=== PATIENT | male | born 1985 | race Hispanic/Latino ===

== ENCOUNTER 2018-11-27 12:17 | Observation (INO) | payer OTHER ==
[2018-11-27 12:35] VITALS: BMI 25.7
[2018-11-27] MEDS ORDERED: Sodium Chloride 0.9% 1,000 ML IV ONE (13:16)
--- NOTE | 2018-11-27 13:16 | C.PDOC ---
History Of Present Illness 33 y/o male with no sig pmx c/o 10 days of cough, fever, bodyaches, lower abdominal pain, dysuria and frequency. pt taking motrin at home, sts urine is dark and bad smelling. seen at an urgent care center last week with a neg flu te st; given a cough syrup. pt reports neg hiv testi for himself and partner Aug 2017. Time Seen by Provider: 11/27/18 12:48 Chief Complaint (Nursing): Cough, Cold, Congestion History Per: Patient History/Exam Limitations: no limitations Onset/Duration Of Symptoms: Days (10) Current Symptoms Are (Timing): Still Present Past Medical History Vital Signs: Last Vital Signs Temp 102.2 F H 11/27/18 12:43 Pulse 99 H 11/27/18 12:43 Resp 18 11/27/18 12:43 BP 136/80 11/27/18 12:43 Pulse Ox 96 11/27/18 12:43 Family History: States: Unknown Family Hx - Social History Hx Alcohol Use: Yes Hx Substance Use: No - Immunization History Hx Tetanus Toxoid Vaccination: No Hx Influenza Vaccination: Yes Hx Pneumococcal Vaccination: No Review Of Systems Constitutional: Positive for: Fever, Chills Respiratory: Positive for: Cough Gastrointestinal: Positive for: Abdominal Pain (lower ) Genitourinary: Positive for: Frequency Musculoskeletal: Positive for: Other (generalized body aches ) Physical Exam - Physical Exam Appears: Non-toxic, No Acute Distress, Other (uncomfortable ) Skin: Normal Color, Warm, Dry, No Rash Head: Atraumatic, Normacephalic Eye(s): bilateral: Normal Inspection Ear(s): Bilateral: Normal Nose: Normal, No Discharge Oral Mucosa: Dry Tongue: Other (white, pasty, dry-appearing ) Neck: Supple Chest: Symmetrical, No Deformity, No Tenderness Cardiovascular: Rhythm Regular, No Murmur Respiratory: Normal Breath Sounds, No Rales, No Rhonchi, No Wheezing, Other (persistent dry cough ) Gastrointestinal/Abdominal: Bowel Sounds (good ), Soft, Tenderness (to left and right lower quadrants and suprapubic regions ), No Guarding, No Rebound Extremity: Normal ROM, No Tenderness, No Pedal Edema, Capillary Refill (less than 2 seconds ) Neurological/Psych: Oriented x3, Normal Speech, Normal Cognition ED Course And Treatment - Laboratory Results Result Diagrams: 11/27/18 13:55 11/27/18 13:55 O2 Sat by Pulse Oximetry: 96 Pulse Ox Interpretation: Normal - Radiology CXR: Viewed By Me, Read By Radiologist (Patchy bilateral infiltrates consistent with pneumonia. ) Medical Decision Making Medical Decision Making: Progress: Bloodwork, urinalysis, CXR ordered and reviewed. Motrin PO, Sodium Chloride INH, and IV Fluids given. discussed with Dr Sandor Andres, will admit to his service. Disposition Discussed With DrChristopher: Isaac Flores Doctor Will See Patient In The: Hospital - Disposition Disposition: HOSPITALIZED Disposition Time: 14:50 Condition: GOOD - Clinical Impression Clinical Impression: Pneumonia, UTI (urinary tract infection) - PA / VICE PRESIDENT PHARMACY / Resident Statement MD/DO has reviewed & agrees with the documentation as recorded. - Scribe Statement The provider has reviewed the documentation as recorded by the Scribe (Kaylyn Flores) All medical record entries made by the Scribe were at my direction and personally dictated by me. I have reviewed the chart and agree that the record accurately reflects my personal performance of the history, physical exam, medical decision making, and the department course for this patient. I have also personally directed, reviewed, and agree with the discharge instructions and disposition.
[2018-11-27] MEDS ORDERED: Sodium Chloride 0.9% Inh Soln (3mL) UD INH ONE (13:17)
[2018-11-27 13:48] LABS: VENOUS BLOOD GAS BASE EXCESS 0.6 mmol/L (0.0-2.0); VENOUS BLOOD GAS PCO2 36 mmHg (40-60); VENOUS BLOOD GAS PO2 29 mm/Hg (30-55); VENOUS BLOOD PH 7.44 (7.32-7.43)
[2018-11-27 14:08] LABS: BASO % 0.4 % (0.0-2.0); EOS % 0.3 % (0.0-4.0); HEMOGLOBIN 14.7 g/dL (12.0-18.0); LYMPH # 1.1 K/uL (1.0-4.3); LYMPH % 14.5 % (20.0-40.0); MEAN CELL VOLUME 89.8 fL (80.0-94.0); MEAN CORPUSCULAR HEMOGLOBIN 32.2 pg (27.0-31.0); MEAN CORPUSCULAR HGB CONC 35.9 g/dL (33.0-37.0); MEAN PLATELET VOLUME 7.4 fL (7.2-11.7); MONO # 0.8 K/uL (0.0-0.8); MONO % 10.1 % (0.0-10.0); NEUT # 5.7 K/uL (1.8-7.0); NEUT % 74.7 % (50.0-75.0); NRBC % 0.1 % (0.0-2.0); RBC 4.57 Mil/uL (4.40-5.90); RED CELL DISTRIBUTION WIDTH 12.7 % (11.5-14.5); WHITE BLOOD COUNT 7.6 K/uL (4.8-10.8)
[2018-11-27 14:16] LABS: URINE BACTERIA RARE (<OCC)
[2018-11-27 14:22] LABS: ALB/GLOB RATIO 1.3 (1.0-2.1); ALT/SGPT 49 U/L (21-72); AST/SGOT 39 U/L (17-59); BLOOD UREA NITROGEN 12 mg/dL (9-20); CALCIUM 8.9 mg/dl (8.6-10.4); GFR NON-AFRICAN AMERICAN > 60
[2018-11-27 14:24] LABS: URINE BILIRUBIN MODERATE (NEGATIVE); URINE CLARITY Clear (Clear); URINE COLOR AMBER (YELLOW); URINE GLUCOSE (UA) NEGATIVE (Normal)
[2018-11-27 14:25] LABS: PH,URINE 6.5 (5.0-8.0); URINE BLOOD NEGATIVE (NEGATIVE); URINE LEUKOCYTE ESTERASE NEGATIVE Leu/uL (Negative); URINE PROTEIN TRACE mg/dL (NEGATIVE); URINE UROBILINOGEN >8.0 mg/dL (0.2-1.0)
[2018-11-27] MEDS ORDERED: cefTRIAXone IV 1 gm in Dextros 50 ML IVPB STA (14:30)
[2018-11-27] MEDS ORDERED: Azithromycin 500 MG in Sodium Chloride 0.9% 250 ML IVPB STA (14:43)
--- NOTE | 2018-11-27 15:03 | RAD ---
Date of service: 11/27/2018 HISTORY: Persistent dry cough COMPARISON: No prior. TECHNIQUE: Chest PA and lateral views FINDINGS: LUNGS: Patchy infiltrates seen in the right lower lobe and left mid and lower lung field consistent with pneumonia. PLEURA: No significant pleural effusion identified. No pneumothorax apparent. CARDIOVASCULAR: No aortic atherosclerotic calcification present. Normal cardiac size. No pulmonary vascular congestion. OSSEOUS STRUCTURES: No significant abnormalities. VISUALIZED UPPER ABDOMEN: Normal. OTHER FINDINGS: None. IMPRESSION: Patchy bilateral infiltrates consistent with pneumonia. This report was placed in PA review folder for follow up.
[2018-11-27] MEDS ORDERED: Azithromycin 500mg/250ML NS 500 MG/250 ML BAG IVPB ONE (15:06)
[2018-11-27] MEDS: Pantoprazole 40 mg EC Tab PO SCH (17:01)
[2018-11-27 17:02] VITALS: RESP 20
--- NOTE | 2018-11-27 18:50 | CP.PCM.HP ---
Present on Admission - Present on Admission Any Indicators Present on Admission: No Past Patient History - Past Social History Smoking Status: Never Smoked - PSYCHIATRIC Hx Substance Use: No - SURGICAL HISTORY Hx Surgeries: No - ANESTHESIA Hx Anesthesia: No Meds Allergies/Adverse Reactions: Allergies Allergy/AdvReac Type Severity Reaction Status Date / Time No Known Allergies Allergy Verified 11/27/18 12:33 Physical Exam - Constitutional Appears: Well - Head Exam Head Exam: ATRAUMATIC, NORMAL INSPECTION, NORMOCEPHALIC - Eye Exam Eye Exam: EOMI, Normal appearance, PERRL Pupil Exam: NORMAL ACCOMODATION, PERRL - ENT Exam ENT Exam: Mucous Membranes Moist, Normal Exam - Neck Exam Neck exam: Positive for: Normal Inspection - Respiratory Exam Respiratory Exam: Decreased Breath Sounds - Cardiovascular Exam Cardiovascular Exam: REGULAR RHYTHM, +S1, +S2 - GI/Abdominal Exam GI & Abdominal Exam: Diminished Bowel Sounds, Soft - Rectal Exam Rectal Exam: Deferred - Neurological Exam Neurological exam: Oriented x3 Results - Vital Signs Recent Vital Signs: Last Vital Signs Temp 98.6 F 11/27/18 17:01 Pulse 78 11/27/18 17:01 Resp 20 11/27/18 17:01 BP 125/78 11/27/18 17:01 Pulse Ox 95 11/27/18 17:01 - Labs Result Diagrams: 11/27/18 13:55 11/27/18 13:55 Labs: Laboratory Results - last 24 hr 11/27/18 11/27/18 11/27/18 13:40 13:55 13:55 WBC 7.6 RBC 4.57 Hgb 14.7 Hct 41.0 MCV 89.8 MCH 32.2 H MCHC 35.9 RDW 12.7 Plt Count 378 MPV 7.4 Neut % (Auto) 74.7 Lymph % (Auto) 14.5 L [place] % (Auto) 10.1 H Eos % (Auto) 0.3 Baso % (Auto) 0.4 Neut # (Auto) 5.7 Lymph # (Auto) 1.1 [place] # (Auto) 0.8 Eos # (Auto) 0.0 Baso # (Auto) 0.0 pO2 29 L VBG pH 7.44 H VBG pCO2 36 L VBG HCO3 24.3 VBG Total CO2 25.6 VBG O2 Sat (Calc) 63.8 VBG Base Excess 0.6 VBG Potassium 3.4 L Sodium 137.0 136 Chloride 102.0 100 Glucose 111 H Lactate 1.8 FiO2 21.0 Potassium 3.7 Carbon Dioxide 25 Anion Gap 15 BUN 12 Creatinine 0.9 Est GFR ( Amer) > 60 Est GFR (Non-Af Amer) > 60 Random Glucose 118 H Lactic Acid Calcium 8.9 Total Bilirubin 1.1 AST 39 ALT 49 Alkaline Phosphatase 157 H Total Protein 7.1 Albumin 4.0 Globulin 3.1 Albumin/Globulin Ratio 1.3 Venous Blood Potassium 3.4 L Urine Color Urine Clarity Urine pH Ur Specific [place] Urine Protein Urine Glucose (UA) Urine Ketones Urine Blood Urine Nitrate Urine Bilirubin Urine Urobilinogen Ur Leukocyte Esterase Urine WBC (Auto) Urine RBC (Auto) Urine Bacteria 11/27/18 11/27/18 13:55 15:21 WBC RBC Hgb Hct MCV MCH MCHC RDW Plt Count MPV Neut % (Auto) Lymph % (Auto) [place] % (Auto) Eos % (Auto) Baso % (Auto) Neut # (Auto) Lymph # (Auto) [place] # (Auto) Eos # (Auto) Baso # (Auto) pO2 VBG pH VBG pCO2 VBG HCO3 VBG Total CO2 VBG O2 Sat (Calc) VBG Base Excess VBG Potassium Sodium Chloride Glucose Lactate FiO2 Potassium Carbon Dioxide Anion Gap BUN Creatinine Est GFR ( Amer) Est GFR (Non-Af Amer) Random Glucose Lactic Acid 0.8 Calcium Total Bilirubin AST ALT Alkaline Phosphatase Total Protein Albumin Globulin Albumin/Globulin Ratio Venous Blood Potassium Urine Color [place] Urine Clarity Clear Urine pH 6.5 Ur Specific [place] 1.020 Urine Protein Trace Urine Glucose (UA) Negative Urine Ketones Negative Urine Blood Negative Urine Nitrate Positive H Urine Bilirubin Moderate Urine Urobilinogen >8.0 Ur Leukocyte Esterase Negative Urine WBC (Auto) 2 Urine RBC (Auto) < 1 Urine Bacteria Rare Assessment & Plan - Assessment and Plan (Free Text) Plan: Rocephin 1 g Mucinex DM Pantoprazole IV Zithromax Acetaminophen Pulmonary consult Regular diet Septic workup Laboratory seen WBC is normal 7.6 Blood gas PP0 229 PCO2 36 Potassium 3.7 Alkaline phosphate is 157 Urine nitrates positive with no symptoms workup for abnormal labs as an outpatient
[2018-11-27] MEDS ORDERED: Promethazine/Cod 6.25mg-10mg/5ml Syr UD PO SCH (21:00)
[2018-11-28] MEDS: guaiFENesin-Codeine 100-10mg/5ml Syrup (10ml) UD PO SCH ×3 (07:30→21:47)
[2018-11-28] MEDS: Pantoprazole 40 mg EC Tab PO SCH (09:33)
--- NOTE | 2018-11-28 09:46 | CP.PCM.CON ---
History of Present Illness - History of Present Illness History of Present Illness: CHART REVIEWED. PT SEEN AND EXAMINED. 33 YO W MALE WITH NO SIG PMH ADM WITH INCREASED MOD COUGH X 10 DAYS NO SPUTUM., WORSE DAYTIME., SEEN IN URGICENTER GIVEN COUGH SYRUP. NO FEVER, NO CHILLS. DECREASED APPETITE, NO N/V NO DIARRHEA. NO HX SINUSITIS, NO HX GERD, NO HX ASTHMA. NO PREVIOUS ADM. NO SICK CONTACTS. Review of Systems - Review of Systems All systems: reviewed and no additional remarkable complaints except - Constitutional Constitutional: Weakness. absent: Chills, Fever, Headache - EENT Eyes: absent: Change in Vision Nose/Mouth/Throat: absent: Nasal Congestion - Cardiovascular Cardiovascular: absent: Chest Pain - Respiratory Respiratory: Cough. absent: Hemoptysis, Excessive Mucous Production - Gastrointestinal Gastrointestinal: absent: Diarrhea, Nausea, Vomiting - Genitourinary Genitourinary: Dysuria - Musculoskeletal Musculoskeletal: absent: Limited Range of Motion - Integumentary Integumentary: absent: Rash Additional comments: MULT TATTOOS - Neurological Neurological: absent: Confusion, Focal Weakness - Psychiatric Psychiatric: absent: Anxiety - Endocrine Endocrine: absent: Change in Body Appearance - Hematologic/Lymphatic Hematologic: absent: Lymphadenopathy Past Patient History - Past Medical History & Family History Past Medical History?: No Past Family History: Reviewed and not pertinent - Past Social History Smoking Status: Never Smoked Chewing Tobacco Use: No Cigar Use: No Alcohol: None Drugs: Denies - CARDIAC Hx Cardiac Disorders: No - PULMONARY Hx Respiratory Disorders: No - NEUROLOGICAL Hx Neurological Disorder: No - HEENT Hx HEENT Problems: No - RENAL Hx Chronic Kidney Disease: No - ENDOCRINE/METABOLIC Hx Endocrine Disorders: No - HEMATOLOGICAL/ONCOLOGICAL Hx Blood Disorders: No - INTEGUMENTARY Hx Dermatological Problems: No - MUSCULOSKELETAL/RHEUMATOLOGICAL Hx Musculoskeletal Disorders: No - GASTROINTESTINAL Hx Gastrointestinal Disorders: No - GENITOURINARY/GYNECOLOGICAL Hx Genitourinary Disorders: No - PSYCHIATRIC Hx Psychophysiologic Disorder: No Hx Substance Use: No - SURGICAL HISTORY Hx Surgeries: No - ANESTHESIA Hx Anesthesia: No Meds Allergies/Adverse Reactions: Allergies Allergy/AdvReac Type Severity Reaction Status Date / Time No Known Allergies Allergy Verified 11/27/18 12:33 - Medications Medications: Current Medications Acetaminophen (Tylenol 325mg Tab) 650 mg PO Q6 PRN PRN Reason: Pain, moderate (4-7) Last Admin: 11/27/18 22:36 Dose: 650 mg Guaifenesin/Codeine Phosphate (Guaifenesin/Codeine) 10 ml PO Q8H FORREST Last Admin: 11/28/18 07:30 Dose: 10 ml Azithromycin (Zithromax 500mg In Ns Addvantage) 500 mg in 250 mls @ 167 mls/hr IVPB Q24H FORREST; Protocol Ceftriaxone Sodium 1 gm/ (Sodium Chloride) 100 mls @ 100 mls/hr IVPB DAILY FORREST; Protocol Last Admin: 11/28/18 09:33 Dose: 100 mls/hr Pantoprazole Sodium (Protonix Ec Tab) 40 mg PO DAILY FORREST Last Admin: 11/28/18 09:33 Dose: 40 mg Pneumococcal Polyvalent Vaccine (Pneumovax 23 Vaccine) 0.5 ml IM .ONCE ONE Stop: 11/29/18 10:01 Physical Exam - Constitutional Appears: No Acute Distress - Head Exam Head Exam: ATRAUMATIC, NORMOCEPHALIC - Eye Exam Eye Exam: EOMI, Normal appearance - ENT Exam ENT Exam: Mucous Membranes Moist - Neck Exam Neck exam: Positive for: Normal Inspection - Respiratory Exam Respiratory Exam: absent: Chest Wall Tenderness, Wheezes, Respiratory Distress - Cardiovascular Exam Cardiovascular Exam: RRR, +S1, +S2 - GI/Abdominal Exam GI & Abdominal Exam: Soft. absent: Tenderness - Rectal Exam Rectal Exam: Deferred - Extremities Exam Extremities exam: Negative for: calf tenderness, pedal edema - Back Exam Back exam: absent: CVA tenderness (L), CVA tenderness (R) - Neurological Exam Neurological exam: Alert, CN II-XII Intact, Oriented x3 - Psychiatric Exam Psychiatric exam: Normal Mood Results - Vital Signs Recent Vital Signs: Last Vital Signs Temp 98.9 F 11/28/18 08:17 Pulse 77 11/28/18 08:17 Resp 20 11/28/18 08:17 BP 115/72 11/28/18 08:17 Pulse Ox 95 11/28/18 08:17 - Labs Result Diagrams: 11/27/18 13:55 11/27/18 13:55 Labs: Laboratory Results - last 24 hr 11/27/18 11/27/18 11/27/18 13:40 13:55 13:55 WBC 7.6 RBC 4.57 Hgb 14.7 Hct 41.0 MCV 89.8 MCH 32.2 H MCHC 35.9 RDW 12.7 Plt Count 378 MPV 7.4 Neut % (Auto) 74.7 Lymph % (Auto) 14.5 L [place] % (Auto) 10.1 H Eos % (Auto) 0.3 Baso % (Auto) 0.4 Neut # (Auto) 5.7 Lymph # (Auto) 1.1 [place] # (Auto) 0.8 Eos # (Auto) 0.0 Baso # (Auto) 0.0 pO2 29 L VBG pH 7.44 H VBG pCO2 36 L VBG HCO3 24.3 VBG Total CO2 25.6 VBG O2 Sat (Calc) 63.8 VBG Base Excess 0.6 VBG Potassium 3.4 L Sodium 137.0 136 Chloride 102.0 100 Glucose 111 H Lactate 1.8 FiO2 21.0 Potassium 3.7 Carbon Dioxide 25 Anion Gap 15 BUN 12 Creatinine 0.9 Est GFR ( Amer) > 60 Est GFR (Non-Af Amer) > 60 Random Glucose 118 H Lactic Acid Calcium 8.9 Total Bilirubin 1.1 AST 39 ALT 49 Alkaline Phosphatase 157 H Total Protein 7.1 Albumin 4.0 Globulin 3.1 Albumin/Globulin Ratio 1.3 Venous Blood Potassium 3.4 L Urine Color Urine Clarity Urine pH Ur Specific [place] Urine Protein Urine Glucose (UA) Urine Ketones Urine Blood Urine Nitrate Urine Bilirubin Urine Urobilinogen Ur Leukocyte Esterase Urine WBC (Auto) Urine RBC (Auto) Urine Bacteria 11/27/18 11/27/18 13:55 15:21 WBC RBC Hgb Hct MCV MCH MCHC RDW Plt Count MPV Neut % (Auto) Lymph % (Auto) [place] % (Auto) Eos % (Auto) Baso % (Auto) Neut # (Auto) Lymph # (Auto) [place] # (Auto) Eos # (Auto) Baso # (Auto) pO2 VBG pH VBG pCO2 VBG HCO3 VBG Total CO2 VBG O2 Sat (Calc) VBG Base Excess VBG Potassium Sodium Chloride Glucose Lactate FiO2 Potassium Carbon Dioxide Anion Gap BUN Creatinine Est GFR ( Amer) Est GFR (Non-Af Amer) Random Glucose Lactic Acid 0.8 Calcium Total Bilirubin AST ALT Alkaline Phosphatase Total Protein Albumin Globulin Albumin/Globulin Ratio Venous Blood Potassium Urine Color [place] Urine Clarity Clear Urine pH 6.5 Ur Specific [place] 1.020 Urine Protein Trace Urine Glucose (UA) Negative Urine Ketones Negative Urine Blood Negative Urine Nitrate Positive H Urine Bilirubin Moderate Urine Urobilinogen >8.0 Ur Leukocyte Esterase Negative Urine WBC (Auto) 2 Urine RBC (Auto) < 1 Urine Bacteria Rare Assessment & Plan (1) Pneumonia Status: Acute (2) UTI (urinary tract infection) Status: Acute - Assessment and Plan (Free Text) Assessment: 33 YO MALE ADM WITH COUGH +BILAT PNA ON CXR., CXR REVIEWED. CONT EMPIRIC AB . ATYPICAL TITERS, R/O FLU. +UTI NOTED, CHECK HIV STATUS. DVT PROPHYLAXIS. DISCUSSED WITH STAFF AT LENGTH.
[2018-11-28] MEDS: Azithromycin 500mg/250ML NS 500 MG/250 ML BAG IVPB SCH (10:56)
--- NOTE | 2018-11-28 18:15 | CP.PCM.PN ---
Subjective - Subjective Subjective: patient seen and examined today no nausea no vomiting no fever no dizziness no shortness of breath no diarrhea Objective - Vital Signs/Intake and Output Vital Signs (last 24 hours): Temp Pulse Resp BP Pulse Ox 99 F 66 20 113/66 96 11/28/18 16:29 11/28/18 16:29 11/28/18 16:29 11/28/18 16:29 11/28/18 16:29 Intake and Output: 11/28/18 11/28/18 06:59 18:59 Intake Total 350 390 Balance 350 390 - Medications Medications: Current Medications Acetaminophen (Tylenol 325mg Tab) 650 mg PO Q6 PRN PRN Reason: Pain, moderate (4-7) Last Admin: 11/27/18 22:36 Dose: 650 mg Guaifenesin/Codeine Phosphate (Guaifenesin/Codeine) 10 ml PO Q8H FORREST Last Admin: 11/28/18 13:25 Dose: 10 ml Azithromycin (Zithromax 500mg In Ns Addvantage) 500 mg in 250 mls @ 167 mls/hr IVPB Q24H FORREST; Protocol Last Admin: 11/28/18 10:56 Dose: 167 mls/hr Ceftriaxone Sodium 1 gm/ (Sodium Chloride) 100 mls @ 100 mls/hr IVPB DAILY FORREST; Protocol Last Admin: 11/28/18 09:33 Dose: 100 mls/hr Pantoprazole Sodium (Protonix Ec Tab) 40 mg PO DAILY FORREST Last Admin: 11/28/18 09:33 Dose: 40 mg Pneumococcal Polyvalent Vaccine (Pneumovax 23 Vaccine) 0.5 ml IM .ONCE ONE Stop: 11/29/18 10:01 - Labs Labs: 11/27/18 13:55 11/27/18 13:55 - Constitutional Appears: Well - Head Exam Head Exam: ATRAUMATIC, NORMAL INSPECTION, NORMOCEPHALIC - Eye Exam Eye Exam: EOMI, Normal appearance, PERRL Pupil Exam: NORMAL ACCOMODATION, PERRL - ENT Exam ENT Exam: Mucous Membranes Moist, Normal Exam - Neck Exam Neck Exam: Full ROM, Normal Inspection. absent: Lymphadenopathy - Respiratory Exam Respiratory Exam: Decreased Breath Sounds - Cardiovascular Exam Cardiovascular Exam: REGULAR RHYTHM, +S1, +S2 - GI/Abdominal Exam GI & Abdominal Exam: Soft, Diminished Bowel Sounds - Rectal Exam Rectal Exam: Deferred - Neurological Exam Neurological Exam: Oriented x3 Assessment and Plan - Assessment and Plan (Free Text) Plan: ceftriaxone sodium guaifenesin/codeine protnox ec tab tylenol zithromax 500mg medications reivewed labs reviewed vitals reviewed
[2018-11-29] MEDS: guaiFENesin-Codeine 100-10mg/5ml Syrup (10ml) UD PO SCH ×2 (05:43→13:53)
[2018-11-29] MEDS: Pantoprazole 40 mg EC Tab PO SCH (09:35)
[2018-11-29] MEDS: Azithromycin 500mg/250ML NS 500 MG/250 ML BAG IVPB SCH (09:36)
[2018-11-29] MEDS ORDERED: Pneumococcal 23-Valent Vaccine IM ONE (10:00)
[2018-11-29 15:40] VITALS: BP 123/78; PULSE 72; TEMP 97.6; O2SAT 94
--- NOTE | 2018-11-29 16:30 | CP.PCM.CON ---
History of Present Illness - History of Present Illness History of Present Illness: 33 y/o male with no sig pmx c/o 10 days of cough, fever, bodyaches, Had neg flu test last week Neg HIV test in Aug n/c NKA SH no IVDA Review of Systems - Review of Systems All systems: reviewed and no additional remarkable complaints except - Constitutional Constitutional: As Per HPI - EENT Eyes: absent: As Per HPI, Blind Spots, Blurred Vision, Change in Vision, Decreased Night Vision, Diplopia, Discharge, Dry Eye, Exophthalmos, Floaters, Irritation, Itchy Eyes, Loss of Peripheral Vision, Pain, Photophobia, Requires Corrective Lenses, Sees Flashes, Spots in Vision, Tunnel Vision, Other Visual Disturbances, Loss of Vision, Other Ears: absent: As Per HPI, Decreased Hearing, Ear Discharge, Ear Pain, Tinnitus, Abnormal Hearing, Disequilibrium, Dizziness, Other Nose/Mouth/Throat: absent: As Per HPI, Epistaxis, Nasal Congestion, Nasal Discharge, Nasal Obstruction, Nasal Trauma, Nose Pain, Post Nasal Drip, Sinus Pain, Sinus Pressure, Bleeding Gums, Change in Voice, Dental Pain, Dry Mouth, Dysphagia, Halitosis, Hoarsness, Lip Swelling, Mouth Lesions, Mouth Pain, Odynophagia, Sore Throat, Throat Swelling, Tongue Swelling, Facial Pain, Neck Pain, Neck Mass, Other - Cardiovascular Cardiovascular: absent: As Per HPI, Acrocyanosis, Chest Pain, Chest Pain at Rest, Chest Pain with Activity, Claudication, Diaphoresis, Dyspnea, Dyspnea on Exertion, Edema, Irregular Heart Rhythm, Pain Radiating to Arm/Neck/Jaw, Leg Edema, Leg Ulcers, Lightheadedness, Orthopnea, Palpitations, Paroxysmal No cturnal Dyspnea, Pedal Edema, Radiating Pain, Rapid Heart Rate, Slow Heart Rate, Syncope, Other - Respiratory Respiratory: As Per HPI - Gastrointestinal Gastrointestinal: absent: As Per HPI, Abdominal Pain, Belching, Bloating, Change in Bowel Habits, Change in Stool Character, Coffee Ground Emesis, Constipation, Cramping, Diarrhea, Dyspepsia, Dysphagia, Early Satiety, Excessive Flatus, Fecal Incontinence, Heartburn, Hematemesis, Hematochezia, Loose Stools, Melena, Nausea, Odynophagia, Temesmus, Vomiting, Other - Genitourinary Genitourinary: absent: As Per HPI, Change in Urinary Stream, Difficulty Urinating, Dysuria, Flank Pain, Hematuria, Pyuria, Nocturia, Urinary Incontinen ce, Urinary Frequency, Urinary Hesitance, Urinary Urgency, Voiding Freq/Small Amts, Freq UTI, Hx Renal/Bladder Calculi, Hx /Renal Surgery, Bladder Distension, Other - Musculoskeletal Musculoskeletal: absent: As Per HPI, Abnormal Gait, Arthralgias, Atrophy, Back Pain, Deformity, Joint Swelling, Limited Range of Motion, Loss of Height, Muscle Cramps, Muscle Weakness, Myalgias, Neck Pain, Numbness, Radiating Pain into Limb, Stiffness, Tingling, Other - Integumentary Integumentary: absent: As Per HPI, Acne, Alopecia, Bleeding Lesions, Change in Hair, Change in Nails, Change in Pigmentation, Changing Lesions, Dry Skin, Erythema, Furuncle, Hirsutism, Lesions, New Lesions, Non-Healing Lesions, Photosensitivity, Pruritus, Rash, Skin Pain, Skin Ulcer, Sores, Striae, Swelling, Unusual Bruising, Wounds, Jaundice, Other - Neurological Neurological: absent: As Per HPI, Abnormal Gait, Abnormal Hearing, Abnormal Movements, Abnormal Speech, Behavioral Changes, Burning Sensations, Confusion, Convulsions, Disequilibrium, Dizziness, Numbness, Focal Weakness, Frequent Falls, Headaches, Lack of Coordination, Loss of Vision, Memory Loss, Paresthesias, Radicular Pain, Restless Legs, Sensory Deficit, Syncope, Tingling, Tremor, Vertigo, Weakness, Other Visual Disturbances, Other - Psychiatric Psychiatric: absent: As Per HPI, Abnormal Sleep Pattern, Anhedonia, Anxiety, Auditory Hallucinations, Behavioral Changes, Change in Appetite, Change in L ibido, Confusion, Depression, Difficulty Concentrating, Hallucinations, Homicidal Ideation, Hopelessness, Irritability, Memory Loss, Mood Swings, Panic Attacks, Paranoia, Suicidal Ideation, Visual Hallucinations, Tactile Hallucinations, Other - Endocrine Endocrine: absent: As Per HPI, Change in Body Appearance, Change in Libido, Cold Intolorance, Deepening of Voice, Excessive Sweating, Fatigue, Flushing, Heat Intolorance, Increase in Ring/Shoe/Hat Size, Palpitations, Polydipsia, Polyphagia, Polyuria, Other - Hematologic/Lymphatic Hematologic: absent: As Per HPI, Easy Bleeding, Easy Bruising, Lymphadenopathy, Other Past Patient History - Past Medical History & Family History Past Medical History?: No Past Family History: Reviewed and not pertinent - Past Social History Smoking Status: Never Smoked Chewing Tobacco Use: No Cigar Use: No Alcohol: None Drugs: Denies - CARDIAC Hx Cardiac Disorders: No - PULMONARY Hx Respiratory Disorders: No - NEUROLOGICAL Hx Neurological Disorder: No - HEENT Hx HEENT Problems: No - RENAL Hx Chronic Kidney Disease: No - ENDOCRINE/METABOLIC Hx Endocrine Disorders: No - HEMATOLOGICAL/ONCOLOGICAL Hx Blood Disorders: No - INTEGUMENTARY Hx Dermatological Problems: No - MUSCULOSKELETAL/RHEUMATOLOGICAL Hx Musculoskeletal Disorders: No - GASTROINTESTINAL Hx Gastrointestinal Disorders: No - GENITOURINARY/GYNECOLOGICAL Hx Genitourinary Disorders: No - PSYCHIATRIC Hx Psychophysiologic Disorder: No Hx Substance Use: No - SURGICAL HISTORY Hx Surgeries: No - ANESTHESIA Hx Anesthesia: No Meds Home Medications: Home Medication List Medication Instructions Recorded Confirmed Type Amoxicillin/Clavulanate [Augmentin 1 tab PO BID #20 tab 11/29/18 Rx 875 MG-125 MG] Saccharomyces Boulardii [Florastor 1 cap PO BID #20 cap 11/29/18 Rx 33 mg-250 mg] Allergies/Adverse Reactions: Allergies Allergy/AdvReac Type Severity Reaction Status Date / Time No Known Allergies Allergy Verified 11/27/18 12:33 - Medications Medications: Current Medications Acetaminophen (Tylenol 325mg Tab) 650 mg PO Q6 PRN PRN Reason: Pain, moderate (4-7) Last Admin: 11/28/18 18:33 Dose: 650 mg Guaifenesin/Codeine Phosphate (Guaifenesin/Codeine) 10 ml PO Q8H FORREST Last Admin: 11/29/18 13:53 Dose: 10 ml Azithromycin (Zithromax 500mg In Ns Addvantage) 500 mg in 250 mls @ 167 mls/hr IVPB Q24H FORREST; Protocol Last Admin: 11/29/18 09:36 Dose: 167 mls/hr Ceftriaxone Sodium 1 gm/ (Sodium Chloride) 100 mls @ 100 mls/hr IVPB DAILY FORREST; Protocol Last Admin: 11/29/18 09:35 Dose: 100 mls/hr Pantoprazole Sodium (Protonix Ec Tab) 40 mg PO DAILY FORREST Last Admin: 11/29/18 09:35 Dose: 40 mg Physical Exam - Constitutional Appears: Non-toxic, No Acute Distress, Chronically Ill - Head Exam Head Exam: ATRAUMATIC, NORMAL INSPECTION, NORMOCEPHALIC - Eye Exam Eye Exam: EOMI, Normal appearance, PERRL Pupil Exam: NORMAL ACCOMODATION, PERRL - ENT Exam ENT Exam: Mucous Membranes Moist, Normal Exam - Neck Exam Neck exam: Positive for: Normal Inspection - Respiratory Exam Respiratory Exam: Clear to Auscultation Bilateral, NORMAL BREATHING PATTERN - Cardiovascular Exam Cardiovascular Exam: REGULAR RHYTHM, +S1, +S2 - GI/Abdominal Exam GI & Abdominal Exam: Normal Bowel Sounds, Soft. absent: Tenderness - Rectal Exam Rectal Exam: Deferred - Exam Exam: NORMAL INSPECTION - Extremities Exam Extremities exam: Positive for: normal inspection - Back Exam Back exam: NORMAL INSPECTION - Neurological Exam Neurological exam: Alert, CN II-XII Intact, Normal Gait, Oriented x3, Reflexes Normal - Psychiatric Exam Psychiatric exam: Normal Affect, Normal Mood - Skin Skin Exam: Dry, Intact, Normal Color, Warm Results - Vital Signs Recent Vital Signs: Last Vital Signs Temp 97.6 F 11/29/18 15:00 Pulse 72 11/29/18 15:00 Resp 20 11/29/18 15:00 BP 123/78 11/29/18 15:00 Pulse Ox 94 L 11/29/18 15:00 - Labs Result Diagrams: 11/27/18 13:55 11/27/18 13:55 Labs: Laboratory Results - last 24 hr 11/29/18 07:29 HIV 1&2 Antibody Screen Negative Assessment & Plan (1) Pneumonia Status: Acute - Assessment and Plan (Free Text) Assessment: cont iv rx await cultures and serologies will follow with you
--- NOTE | 2018-11-29 16:51 | CP.PCM.PN ---
Subjective - Date & Time of Evaluation Date of Evaluation: 11/29/18 Time of Evaluation: 16:49 - Subjective Subjective: PT ALERT, OOB, FEELS BETTER., NO SOB. ROS' ; OTHERWISE NEG Objective - Vital Signs/Intake and Output Vital Signs (last 24 hours): Temp Pulse Resp BP Pulse Ox 97.6 F 72 20 123/78 94 L 11/29/18 15:00 11/29/18 15:00 11/29/18 15:00 11/29/18 15:00 11/29/18 15:00 Intake and Output: 11/29/18 11/29/18 06:59 18:59 Intake Total 350 850 Output Total 2 Balance 350 848 - Medications Medications: Current Medications Acetaminophen (Tylenol 325mg Tab) 650 mg PO Q6 PRN PRN Reason: Pain, moderate (4-7) Last Admin: 11/28/18 18:33 Dose: 650 mg Guaifenesin/Codeine Phosphate (Guaifenesin/Codeine) 10 ml PO Q8H FORREST Last Admin: 11/29/18 13:53 Dose: 10 ml Azithromycin (Zithromax 500mg In Ns Addvantage) 500 mg in 250 mls @ 167 mls/hr IVPB Q24H FORREST; Protocol Last Admin: 11/29/18 09:36 Dose: 167 mls/hr Ceftriaxone Sodium 1 gm/ (Sodium Chloride) 100 mls @ 100 mls/hr IVPB DAILY FORREST; Protocol Last Admin: 11/29/18 09:35 Dose: 100 mls/hr Pantoprazole Sodium (Protonix Ec Tab) 40 mg PO DAILY FORREST Last Admin: 11/29/18 09:35 Dose: 40 mg - Labs Labs: 11/27/18 13:55 11/27/18 13:55 - Constitutional Appears: No Acute Distress - Head Exam Head Exam: ATRAUMATIC, NORMOCEPHALIC - Eye Exam Eye Exam: EOMI, Normal appearance - ENT Exam ENT Exam: Mucous Membranes Moist - Neck Exam Neck Exam: Normal Inspection - Respiratory Exam Respiratory Exam: absent: Rhonchi, Wheezes, Respiratory Distress - Cardiovascular Exam Cardiovascular Exam: RRR, +S1, +S2 - GI/Abdominal Exam GI & Abdominal Exam: Soft. absent: Tenderness - Rectal Exam Rectal Exam: Deferred - Extremities Exam Extremities Exam: absent: Calf Tenderness, Pedal Edema - Back Exam Back Exam: absent: CVA tenderness (L), CVA tenderness (R) - Neurological Exam Neurological Exam: Alert, Awake, CN II-XII Intact, Normal Gait, Oriented x3 - Psychiatric Exam Psychiatric exam: Normal Mood - Skin Skin Exam: absent: Rash Assessment and Plan (1) Pneumonia Status: Acute (2) UTI (urinary tract infection) Status: Acute - Assessment and Plan (Free Text) Assessment: RESP STATUS IMPROVING., ADEQ OXYGENATION., CXR REVIEWED. AFEBRILE ON EMPIRIC AB. TO F/U CXR FOR CLEARANCE. ID EVAL NOTED. DISCUSSED WITH STAFF AT LENGTH.
--- NOTE | 2018-11-29 18:28 | CP.PCM.PN ---
Subjective - Date & Time of Evaluation Date of Evaluation: 11/29/18 Time of Evaluation: 11:00 - Subjective Subjective: alert, oriented, no sob or chest pains. Objective - Vital Signs/Intake and Output Vital Signs (last 24 hours): Temp Pulse Resp BP Pulse Ox 97.6 F 72 20 123/78 94 L 11/29/18 15:00 11/29/18 15:00 11/29/18 15:00 11/29/18 15:00 11/29/18 15:00 Intake and Output: 11/29/18 11/29/18 06:59 18:59 Intake Total 350 850 Output Total 2 Balance 350 848 - Labs Labs: 11/27/18 13:55 11/27/18 13:55 Assessment and Plan - Assessment and Plan (Free Text) Assessment: Patient is seen and examined with DR Sudhir Flores. Alert and orientedx3, requesting to go home, feeling better. Denies sob or chest pains. Plan to discharge home on orl antibiotics x 10 days. Advised to follow up in the office in 1 week.
--- NOTE | 2018-11-29 22:54 | CP.PCM.DIS ---
Provider - Provider Date of Admission: 11/27/18 14:48 Attending physician: Ernesto Floers MD Consults: 11/27/18 21:14 Pulmonology Consult Routine Comment: Consulting Provider: Mary Ballard Consulting Physician: Mary Ballard Reason for Consult: pnemonia, coughing 11/28/18 16:21 Physician Consult Routine Comment: Consulting Provider: Eduard Cardenas Consulting Physician: Eduard Cardenas Reason for Consult: pneumonia Time Spent in preparation of Discharge (in minutes): 15 Hospital Course - Lab Results Lab Results: Micro Results 11/27/18 13:55 Blood Blood Culture - Preliminary NO GROWTH AFTER 48 HOURS 11/27/18 13:55 Blood Blood Culture - Preliminary NO GROWTH AFTER 48 HOURS 11/27/18 13:55 Urine,Clean Catch Urine Culture - Final No Growth (<1,000 CFU/ML) Most Recent Lab Values WBC 7.6 K/uL (4.8-10.8) 11/27/18 13:55 RBC 4.57 Mil/uL (4.40-5.90) 11/27/18 13:55 Hgb 14.7 g/dL (12.0-18.0) 11/27/18 13:55 Hct 41.0 % (35.0-51.0) 11/27/18 13:55 MCV 89.8 fL (80.0-94.0) 11/27/18 13:55 MCH 32.2 pg (27.0-31.0) H 11/27/18 13:55 MCHC 35.9 g/dL (33.0-37.0) 11/27/18 13:55 RDW 12.7 % (11.5-14.5) 11/27/18 13:55 Plt Count 378 K/uL (130-400) 11/27/18 13:55 MPV 7.4 fL (7.2-11.7) 11/27/18 13:55 Neut % (Auto) 74.7 % (50.0-75.0) 11/27/18 13:55 Lymph % (Auto) 14.5 % (20.0-40.0) L 11/27/18 13:55 [place] % (Auto) 10.1 % (0.0-10.0) H 11/27/18 13:55 Eos % (Auto) 0.3 % (0.0-4.0) 11/27/18 13:55 Baso % (Auto) 0.4 % (0.0-2.0) 11/27/18 13:55 Neut # (Auto) 5.7 K/uL (1.8-7.0) 11/27/18 13:55 Lymph # (Auto) 1.1 K/uL (1.0-4.3) 11/27/18 13:55 [place] # (Auto) 0.8 K/uL (0.0-0.8) 11/27/18 13:55 Eos # (Auto) 0.0 K/uL (0.0-0.7) 11/27/18 13:55 Baso # (Auto) 0.0 K/uL (0.0-0.2) 11/27/18 13:55 pO2 29 mm/Hg (30-55) L 11/27/18 13:40 VBG pH 7.44 (7.32-7.43) H 11/27/18 13:40 VBG pCO2 36 mmHg (40-60) L 11/27/18 13:40 VBG HCO3 24.3 mmol/L 11/27/18 13:40 VBG Total CO2 25.6 mmol/L (22-28) 11/27/18 13:40 VBG O2 Sat (Calc) 63.8 % (40-65) 11/27/18 13:40 VBG Base Excess 0.6 mmol/L (0.0-2.0) 11/27/18 13:40 VBG Potassium 3.4 mmol/L (3.6-5.2) L 11/27/18 13:40 Sodium 137.0 mmol/l (132-148) 11/27/18 13:40 Chloride 102.0 mmol/L (98-107) 11/27/18 13:40 Glucose 111 mg/dl (75-110) H 11/27/18 13:40 Lactate 1.8 mmol/L (0.7-2.1) 11/27/18 13:40 FiO2 21.0 % 11/27/18 13:40 Sodium 136 mmol/L (132-148) 11/27/18 13:55 Potassium 3.7 mmol/L (3.6-5.2) 11/27/18 13:55 Chloride 100 mmol/L (98-107) 11/27/18 13:55 Carbon Dioxide 25 mmol/L (22-30) 11/27/18 13:55 Anion Gap 15 (10-20) 11/27/18 13:55 BUN 12 mg/dL (9-20) 11/27/18 13:55 Creatinine 0.9 mg/dL (0.8-1.5) 11/27/18 13:55 Est GFR ( Amer) > 60 11/27/18 13:55 Est GFR (Non-Af Amer) > 60 11/27/18 13:55 Random Glucose 118 mg/dL (75-110) H 11/27/18 13:55 Lactic Acid 0.8 mmol/L (0.7-2.1) 11/27/18 15:21 Calcium 8.9 mg/dl (8.6-10.4) 11/27/18 13:55 Total Bilirubin 1.1 mg/dL (0.2-1.3) 11/27/18 13:55 AST 39 U/L (17-59) 11/27/18 13:55 ALT 49 U/L (21-72) 11/27/18 13:55 Alkaline Phosphatase 157 U/L (38-126) H 11/27/18 13:55 Total Protein 7.1 g/dL (6.3-8.3) 11/27/18 13:55 Albumin 4.0 g/dL (3.5-5.0) 11/27/18 13:55 Globulin 3.1 gm/dL (2.2-3.9) 11/27/18 13:55 Albumin/Globulin Ratio 1.3 (1.0-2.1) 11/27/18 13:55 Venous Blood Potassium 3.4 mmol/L (3.6-5.2) L 11/27/18 13:40 Urine Color [place] (YELLOW) 11/27/18 13:55 Urine Clarity Clear (Clear) 11/27/18 13:55 Urine pH 6.5 (5.0-8.0) 11/27/18 13:55 Ur Specific [place] 1.020 (1.003-1.030) 11/27/18 13:55 Urine Protein Trace mg/dL (NEGATIVE) 11/27/18 13:55 Urine Glucose (UA) Negative mg/dL (Normal) 11/27/18 13:55 Urine Ketones Negative mg/dL (NEGATIVE) 11/27/18 13:55 Urine Blood Negative (NEGATIVE) 11/27/18 13:55 Urine Nitrate Positive (NEGATIVE) H 11/27/18 13:55 Urine Bilirubin Moderate (NEGATIVE) 11/27/18 13:55 Urine Urobilinogen >8.0 mg/dL (0.2-1.0) 11/27/18 13:55 Ur Leukocyte Esterase Negative Kathleen/uL (Negative) 11/27/18 13:55 Urine WBC (Auto) 2 /hpf (0-5) 11/27/18 13:55 Urine RBC (Auto) < 1 /hpf (0-3) 11/27/18 13:55 Urine Bacteria Rare (<OCC) 11/27/18 13:55 HIV 1&2 Antibody Screen Negative (NEGATIVE) 11/29/18 07:29 - Hospital Course Hospital Course: Patient admitted with the pneumonia Patient given Rocephin and Zithromax IV Patient was discharged on a p.o. antibiotic Patient's cough significantly decreased Patient advised to come for the follow-up that is Tuesday in 48 hours at my office for further workup will repeat the x-ray may be in 3 weeks patient's made aware about the plan patient understood patient is clear to Discharge Exam - Head Exam Head Exam: ATRAUMATIC, NORMAL INSPECTION, NORMOCEPHALIC - Eye Exam Eye Exam: EOMI, Normal appearance, PERRL Pupil Exam: NORMAL ACCOMODATION, PERRL - ENT Exam ENT Exam: Normal Exam - Neck Exam Neck exam: Full Rom - Respiratory Exam Respiratory Exam: Decreased Breath Sounds, Rales - Cardiovascular Exam Cardiovascular Exam: REGULAR RHYTHM, +S1, +S2 - GI/Abdominal Exam GI & Abdominal Exam: Diminished Bowel Sounds, Distended - Rectal Exam Rectal Exam: Deferred - Neurological Exam Neurological exam: Oriented x3 Discharge Plan - Discharge Medications Prescriptions: Amoxicillin/Clavulanate [Augmentin 875 MG-125 MG] 1 tab PO BID #20 tab Saccharomyces Boulardii [Florastor 33 mg-250 mg] 1 cap PO BID #20 cap - Follow Up Plan Condition: GOOD Disposition: HOME/ ROUTINE Instructions: Saccharomyces boulardii, Pneumonia, Adult (DC), Amoxicillin, Urinary Tract Infection in Men (DC), Urinary Tract Infection in Women (DC), Dysuria (GEN) Additional Instructions: follow up in his office this week augmentin 875mg po bid x10 days florestor 1 po bid Follow up with in one week, Pulmonary. Referrals: Mary Ballard MD [Staff Provider] -
== END 2018-11-29 17:31 | disposition home or self-care (01) ==
LOC: C.ER 12:17 → C.9E 14:48 → C.6T 15:08 → C.9E 15:09 → C.3T 16:04
PROVIDERS: ADMIT Internal Medicine Nephrology; ATTEND Internal Medicine Nephrology
DX: J18.9 Pneumonia, unspecified organism (principal); N39.0 Urinary tract infection, site not specified
CPT/HCPCS: 36415; 71046; 80053; 81001; 82803; 83605; 85025; 86703; 86738; 87040; 87086; 96360; 96365; 99285; G0378; J0456; J0696; J7030; J7050